=== PATIENT | female | born 1985 | race Caucasian/White ===

== ENCOUNTER 2021-01-01 14:35 | Outpatient (REF) | payer OTHER, SELFPAY ==
[2021-01-01 18:14] LABS: HCG Quantitative < 2 mIU/mL; Thyroid Stimulating Hormone 0.69 uIU/mL (0.32-4.0)
== END 2021-01-01 14:36 | disposition home or self-care (01) ==
LOC: HO.LAB 14:35
PROVIDERS: PCP Internal Medicine; Visit Provider Advanced Practice Midwife
DX: N92.6 Irregular menstruation, unspecified (principal)
CPT/HCPCS: 36415; 81025; 84443; 84702; 99212